=== PATIENT | male | born 1940 | race Caucasian/White ===

== ENCOUNTER → 2020-07-11 | Outpatient (CLI) | payer OTHER, BC | LOC: SJCVCIMAG 08:37 | PROVIDERS: ATTEND Internal Medicine | DX: I35.1 Nonrheumatic aortic (valve) insufficiency (principal); R00.1 Bradycardia, unspecified; I44.0 Atrioventricular block, first degree; I71.2 Thoracic aortic aneurysm, without rupture; G20 Parkinson's disease; E78.5 Hyperlipidemia, unspecified; H46.9 Unspecified optic neuritis; Z79.899 Other long term (current) drug therapy ==

== ENCOUNTER → 2021-02-13 | Outpatient (CLI) | payer OTHER, BC | LOC: SJCVCIMAG 09:03 | PROVIDERS: ATTEND Internal Medicine | DX: I08.3 Combined rheumatic disorders of mitral, aortic and tricuspid valves (principal); I11.9 Hypertensive heart disease without heart failure; R00.1 Bradycardia, unspecified; I44.0 Atrioventricular block, first degree; I71.2 Thoracic aortic aneurysm, without rupture; G20 Parkinson's disease; E78.5 Hyperlipidemia, unspecified; H46.9 Unspecified optic neuritis; Z88.0 Allergy status to penicillin; Z88.8 Allergy status to other drugs, medicaments and biological substances; Z79.899 Other long term (current) drug therapy ==